=== PATIENT | male | born 1980 ===

== ENCOUNTER 2018-05-14 08:28 | Emergency (ER) | payer OTHER ==
[2018-05-14 08:30] VITALS: BMI 27.8
[2018-05-14] MEDS ORDERED: Sodium Chloride 0.9% 1,000 ML IV STA (08:46)
[2018-05-14] MEDS ORDERED: SODIUM CHLORIDE 0.9% IV STA (08:46)
[2018-05-14] MEDS ORDERED: LIDOCAINE IV STA (08:46)
--- NOTE | 2018-05-14 08:50 | C.PDOC ---
History Of Present Illness Pt HPI limited due to clinical condition. 38 y/o male pt presents to the ER for new onset of LLQ abdominal pain since this morning. Pain is sharp with questionable radiation. Pt denies UTI sx, nausea, vomiting and fever. Pt denies hx of kidney stones and no PSHx. LIMITED DUE TO CLIN COND NEW ONSET LLQ PAIN SINCE THIS MORNING. SHARP. ?RADIATION. NO UTI SX, NV, FEVER. DENIES HO KIDNEY STONES. PSH NEG EXAM MOD DIST WRITHING ON STRETCHER ABD NEG NO CVAT REMAIDNER NEG Time Seen by Provider: 05/14/18 08:37 Chief Complaint (Nursing): Abdominal Pain History Per: Patient History/Exam Limitations: clinical condition Onset/Duration Of Symptoms: Hrs Current Symptoms Are (Timing): Still Present Location Of Pain/Discomfort: LLQ Quality Of Discomfort: Sharp Past Medical History Reviewed: Historical Data, Nursing Documentation, Vital Signs Surgical History: No Surg Hx Family History: States: No Known Family Hx - Social History Hx Alcohol Use: No Hx Substance Use: No - Immunization History Hx Tetanus Toxoid Vaccination: No Hx Influenza Vaccination: No Hx Pneumococcal Vaccination: No Review Of Systems Except As Marked, All Systems Reviewed And Found Negative. Constitutional: Negative for: Fever, Other (hx of kidney stones ) Gastrointestinal: Positive for: Abdominal Pain (LLQ). Negative for: Nausea, Vomiting Genitourinary: Negative for: Dysuria, Frequency, Incontinence, Hematuria Physical Exam - Physical Exam Appears: Non-toxic, In Acute Distress (moderate ), Other (writhing on stretcher ) Skin: Warm, Dry Head: Normacephalic Eye(s): bilateral: Normal Inspection Ear(s): Bilateral: Normal Nose: Normal Oral Mucosa: Moist Cardiovascular: Rhythm Regular Respiratory: Other (NARD) Gastrointestinal/Abdominal: Soft, No Tenderness Back: No CVA Tenderness Extremity: Normal ROM (x4) Neurological/Psych: Oriented x3, Normal Speech ED Course And Treatment - Laboratory Results Result Diagrams: 05/14/18 09:00 05/14/18 09:00 - CT Scan/US CT abd and pelvis Other Rad Studies (CT/US): Read By Radiologist, Radiology Report Reviewed CT/US Interpretation: Accession No. : [id number]. Patient Name / ID : DEE RAMOS / [id number]. Exam Date : 05/14/2018 10:02:58 ( Approved ). Study Comment : Sex / Age : M / 38Y. Creator : Thea Waterman. Dictator : Dolores Simmons MD. Corrugated Box Machine Operator : Breakdown Mill Operator : Dolores Simmons MD. Approver2 : Report Date : 05/14/2018 10:26:32. My Comment : . Date of service: 05/14/2018. PROCEDURE: CT Abdomen and Pelvis with and without intravenous contrast. HISTORY: abd pain LLQ/FLANK. COMPARISON: None available. TECHNIQUE: Axial images of the abdomen were obtained in the pre contrast, portal venous and delayed phases of enhancement. Coronal and sagittal reformats were generated. Contrast dose: 100 mL Visipaque 320 IV. Radiation dose: Total exam DLP = 1381.37 mGy-cm. This CT exam was performed using one or more of the following dose reduction techniques: Automated exposure control, adjustment of the mA and/or kV according to patient size, and/or use of iterative reconstruction technique. FINDINGS: LOWER THORAX: No visible consolidation, pleural effusion, or pneumothorax. LIVER: Too small to characterize hepatic hypodensities; statistically likely cyst. GALLBLADDER AND BILE DUCTS: Unremarkable. PANCREAS: Unremarkable. SPLEEN: Unremarkable. ADRENALS: Unremarkable. KIDNEYS AND URETERS: The kidneys enhance symmetrically. 2 mm calculus noted at the left UVJ with mild proximal hydroureteronephrosis. Additional bilateral punctate nonobstructing renal calculi evident. VASCULATURE: No aortic aneurysm. No aortic atherosclerotic calcification or mural plaque present. BOWEL: APPENDIX: No secondary signs of acute appendicitis. PERITONEUM: No significant free fluid. No definite free air. LYMPH NODES: No bulky adenopathy identified. BLADDER: Unremarkable. REPRODUCTIVE: Heterogeneous enlarged appearance of the prostate gland. BONES: Osseous demineralization. Degenerative changes. OTHER FINDINGS: None. IMPRESSION: 2 mm calculus noted at the left UVJ with mild proximal hydrou reteronephrosis. Additional bilateral punctate nonobstructing renal calculi evident. Enlarged heterogeneous prostate gland. Recommend correlation with PSA. Too small to characterize hepatic hypodensities; statistically likely cysts. Additional findings as above. Progress Note: Plans: -- chem labs. -- blood work. -- CT abd and pelvis. -- IV fluids. -- Tyelnol. -- Toradol. -- flomax. -- Lidocaine Reevaluation Time: 11:12 Reassessment Condition: Improved Disposition Counseled Patient/Family Regarding: Studies Performed, Diagnosis, Need For Followup, Rx Given - Disposition Referrals: [facility] [Outside] [facility] [Outside] Disposition: HOME/ ROUTINE Disposition Time: 11:12 Condition: IMPROVED Prescriptions: Ibuprofen [Motrin] 600 mg PO Q6 #30 tab Ondansetron ODT [Zofran ODT] 4 mg PO TID PRN #12 odt PRN Reason: Nausea/Vomiting Tamsulosin [Flomax] 0.4 mg PO DAILY #14 cap Tramadol HCl [Ultram] 50 mg PO QID #20 tab Instructions: Kidney Stones (DC) Forms: [employer] (Nauruan), Work Excuse - Clinical Impression Clinical Impression: Ureterolithiasis, Renal colic - Scribe Statement The provider has reviewed the documentation as recorded by the Laurieibamaya Chahal Do Provider Attestation: All medical record entries made by the Scribe were at my direction and personally dictated by me. I have reviewed the chart and agree that the record accurately reflects my personal performance of the history, physical exam, medical decision making, and the department course for this patient. I have also personally directed, reviewed, and agree with the discharge instructions and disposition.
[2018-05-14] MEDS ORDERED: Sodium Chloride 0.9% 1,000 ML ONE (08:55)
[2018-05-14 09:11] VITALS: O2SAT 100
[2018-05-14 09:12] LABS: BASO % 0.3 % (0.0-2.0); EOS # 0.7 K/uL (0.0-0.7); EOS % 6.7 % (0.0-4.0); HEMOGLOBIN 15.4 g/dL (12.0-18.0); LYMPH # 3.8 K/uL (1.0-4.3); LYMPH % 37.2 % (20.0-40.0); MEAN CELL VOLUME 87.5 fL (80.0-94.0); MEAN CORPUSCULAR HEMOGLOBIN 29.2 pg (27.0-31.0); MEAN CORPUSCULAR HGB CONC 33.4 g/dL (33.0-37.0); MONO % 9.8 % (0.0-10.0); NEUT # 4.7 K/uL (1.8-7.0); NRBC % 0.2 % (0.0-2.0); RBC 5.27 Mil/uL (4.40-5.90); RED CELL DISTRIBUTION WIDTH 13.5 % (11.5-14.5); WHITE BLOOD COUNT 10.3 K/uL (4.8-10.8)
[2018-05-14 09:17] LABS: SQUAMOUS EPITHIAL < 1 /hpf (0-5); URINE BILIRUBIN NEGATIVE (NEGATIVE); URINE BLOOD NEGATIVE (NEGATIVE); URINE CLARITY Clear (Clear); URINE COLOR Yellow (YELLOW); URINE GLUCOSE (UA) NORMAL (Normal); URINE LEUKOCYTE ESTERASE NEG Leu/uL (Negative); URINE PROTEIN NEGATIVE (NEGATIVE); URINE UROBILINOGEN NORMAL mg/dL (0.2-1.0)
[2018-05-14 09:23] LABS: ALB/GLOB RATIO 1.7 (1.0-2.1); ALBUMIN 4.6 g/dL (3.5-5.0); ALT/SGPT 30 U/L (21-72); AST/SGOT 34 U/L (17-59); BLOOD UREA NITROGEN 19 mg/dL (9-20); CALCIUM 8.8 mg/dl (8.6-10.4); GFR NON-AFRICAN AMERICAN > 60; LIPASE 62 U/L (23-300)
[2018-05-14 09:36] VITALS: BP 119/84; PULSE 68; RESP 14
[2018-05-14] MEDS ORDERED: Iodixanol 320 MG/ML 100 ML BOTTLE IV ONE (09:56)
--- NOTE | 2018-05-14 11:09 | CT ---
Date of service: 05/14/2018 PROCEDURE: CT Abdomen and Pelvis with and without intravenous contrast HISTORY: abd pain LLQ/FLANK COMPARISON: None available TECHNIQUE: Axial images of the abdomen were obtained in the pre contrast, portal venous and delayed phases of enhancement. Coronal and sagittal reformats were generated. Contrast dose: 100 mL Visipaque 320 IV Radiation dose: Total exam DLP = 1381.37 mGy-cm. This CT exam was performed using one or more of the following dose reduction techniques: Automated exposure control, adjustment of the mA and/or kV according to patient size, and/or use of iterative reconstruction technique. FINDINGS: LOWER THORAX: No visible consolidation, pleural effusion, or pneumothorax. LIVER: Too small to characterize hepatic hypodensities; statistically likely cyst. GALLBLADDER AND BILE DUCTS: Unremarkable. PANCREAS: Unremarkable. SPLEEN: Unremarkable. ADRENALS: Unremarkable. KIDNEYS AND URETERS: The kidneys enhance symmetrically. 2 mm calculus noted at the left UVJ with mild proximal hydroureteronephrosis. Additional bilateral punctate nonobstructing renal calculi evident. VASCULATURE: No aortic aneurysm. No aortic atherosclerotic calcification or mural plaque present. BOWEL: APPENDIX: No secondary signs of acute appendicitis. PERITONEUM: No significant free fluid. No definite free air. LYMPH NODES: No bulky adenopathy identified. BLADDER: Unremarkable. REPRODUCTIVE: Heterogeneous enlarged appearance of the prostate gland. BONES: Osseous demineralization. Degenerative changes. OTHER FINDINGS: None. IMPRESSION: 2 mm calculus noted at the left UVJ with mild proximal hydroureteronephrosis. Additional bilateral punctate nonobstructing renal calculi evident. Enlarged heterogeneous prostate gland. Recommend correlation with PSA. Too small to characterize hepatic hypodensities; statistically likely cysts. Additional findings as above.
[2018-05-14] MEDS ORDERED: Oxycodone/Acetaminophen 5/325 mg Tab ONE (11:28)
[2018-05-14] MEDS ORDERED: Oxycodone/Acetaminophen 5/325 mg Tab PO STA (11:41)
== END 2018-05-14 12:22 | disposition home or self-care (01) ==
LOC: C.ER 08:28
DX: N20.1 Calculus of ureter (principal)
CPT/HCPCS: 74178; 80053; 81001; 83690; 85025; 96361; 96374; 99285; J1885; J2001; J7030; Q9967